=== PATIENT | female | born 1970 | race Caucasian/White ===

== ENCOUNTER 2016-09-22 06:39 | Day surgery (SDC) | payer BC ==
[~2016-09-22] VITALS: Ht 157.5 cm; Wt 88.5 kg
[~2016-09-22 06:39] MED LIST: CYMBALTA60 MG PO; FLEXERIL5 MG PO; IMITREX100 MG PO; TYLENOL EXTRA500 MG PO
[2016-09-22 07:31] VITALS: BP 140/74
[2016-09-22 11:40] VITALS: BP 111/55
[2016-09-22 12:40] VITALS: BP 114/70
== END 2016-09-22 12:53 | disposition home or self-care (01) ==
LOC: SDC 06:39
DX: N92.6 Irregular menstruation, unspecified (principal); N93.8 Other specified abnormal uterine and vaginal bleeding; Z30.2 Encounter for sterilization; Z30.432 Encounter for removal of intrauterine contraceptive device; N85.4 Malposition of uterus; N83.291 Other ovarian cyst, right side; N80.3 Endometriosis of pelvic peritoneum; Z68.36 Body mass index [BMI] 36.0-36.9, adult; E66.9 Obesity, unspecified; G25.81 Restless legs syndrome; K58.9 Irritable bowel syndrome, unspecified; Z82.49 Family history of ischemic heart disease and other diseases of the circulatory system; Z80.0 Family history of malignant neoplasm of digestive organs; Z83.49 Family history of other endocrine, nutritional and metabolic diseases; Z77.22 Contact with and (suspected) exposure to environmental tobacco smoke (acute) (chronic)
CPT/HCPCS: 84702; 87205; 88305; J0330; J1100; J1170; J2175; J2405; J2710; J3010

== ENCOUNTER → 2017-07-27 | Outpatient (CLI) | payer BC | END | disposition home or self-care (01) | LOC: RAD 08:46 | DX: R10.30 Lower abdominal pain, unspecified (principal) | CPT/HCPCS: 76705 ==